=== PATIENT | female | born 1990 | race Caucasian/White ===

== ENCOUNTER 2018-08-06 17:47 | Emergency (ER) | payer BC ==
[2018-08-06 18:27] LABS: #Basophils 0.1 thou/uL (0.0-0.2); #Eosinphils 0.3 thou/uL (0.0-0.7); #Lymphocytes 2.3 thou/uL (1.20-3.40); #Monocytes 0.4 thou/uL (0.11-0.59); #Neutrophils 3.8 thou/uL (1.40-6.50); %Basophils 0.8 % (0.0-1.0); %Eosinophils 4.4 % (0.0-10.0); %Lymphocytes 33.5 % (21.0-51.0); %Monocytes 5.8 % (0.0-10.0); %Neutrophils 55.5 % (42.0-75.0); Hemoglobin 11.5 g/dL (12.0-16.0); Mean Corpuscular HGB CONC 33.3 g/dL (32.0-36.0); Mean Corpuscular Hemoglobin 28.6 pg (27.0-31.0); Mean Corpuscular Volume 85.9 fL (78.0-98.0); Mean Platelet Volume 8.5 fL (7.4-10.4); Platelet Count 242 thou/uL (130-400); RBC Distribution Width 13.7 % (11.5-14.5); Red Blood Cell (RBC) Count 4.04 mill/uL (4.20-5.40); White Blood Cell (WBC) Count 6.8 thou/uL (4.8-10.8)
[2018-08-06 18:41] LABS: Bilirubin Negative (Negative); Blood, Urine Large (Negative); Clarity CLEAR (Clear); Glucose, Urine (Dipstick) Negative (Negative); Leukocyte Small (Negative); Nitrite Negative (Negative); Protein, Urine (Dipstick) Negative (Neg-Trace); Specific Gravity, Urine 1.017 (1.002-1.036); Urobilinogen 0.2 mg/dL (0.2-1.0); pH, Urine 5.5 (5.0-9.0)
[2018-08-06 18:42] LABS: Bacteria/HPF None Seen HPF (None Seen); Hyaline Casts/LPF 0-3 HYALINE CAST LPF (0-3 Hyaline); Pathc Cast-AUWi Flag 0.27 (0-2.49); RBC/HPF GREATER THAN 50-TNTC HPF (0-3); Squamous Epithelial 0-3 HPF (0-3)
== END 2018-08-06 20:04 | disposition home or self-care (01) ==
LOC: ERS 17:47
DX: N93.9 Abnormal uterine and vaginal bleeding, unspecified (principal); F41.9 Anxiety disorder, unspecified; Z79.899 Other long term (current) drug therapy
CPT/HCPCS: 36415; 81003; 81015; 84702; 85025; 86850; 86900; 86901; 99284

== ENCOUNTER 2018-08-08 07:59 | Day surgery (SDC) | payer BC ==
--- NOTE | 2018-08-07 14:14 | HP ---
REASON FOR ADMISSION: Eight weeks missed AB. Scheduled procedure suction D and C by Dr. Alise Muse. HISTORY OF PRESENT ILLNESS: Ms. Babb is a 27-year-old 8, para 4, AB4, who came to see me early in , was found to have a blighted ovum. She was administered p.o. Cytotec, which she did not tolerate well and has had continued bleeding since without passage of tissue. She was seen in the emergency room 2 days ago, noted to have a hematocrit of 34%. Ultrasound today in the office reveals a thickened endometrium inhomogeneous with a maximum thickness of 2 cm. After discussing with the patient options, she desires to proceed with suction D and C. AEMT HISTORY: As noted. PAST MEDICAL HISTORY: None. PAST SURGICAL HISTORY: Reduction mammoplasty. ALLERGIES: CEFPROZIL. MEDICATIONS: vitamins, Bonjesta, Zofran, and tramadol. SOCIAL HISTORY: Denies tobacco, alcohol, or IV drug abuse. FAMILY HISTORY: Noncontributory. REVIEW OF SYSTEMS: Noncontributory. PHYSICAL EXAMINATION: VITAL SIGNS: White female in no acute distress, 5 feet 5 inches, weight 143, BMI 23.8, blood pressure 114/62, pulse 69, respirations 18. HEENT: Within normal limits. LUNGS: Clear to auscultation bilaterally. HEART: Regular rhythm. ABDOMEN: Soft, nontender. No rebound or guarding. : Vulva without lesions. Vagina without discharge. Cervix parous, small amount of bleeding. No dilatation or products of conception noted. Uterus is anteverted, 6- to 8-week size, slightly boggy, slightly tender. No adnexal masses. EXTREMITIES: Without clubbing, cyanosis, or edema. LABORATORY DATA: The patient's hematocrit is 34%. Blood type is A positive, antibody negative. IMPRESSION: Missed at 6 to 8 weeks gestation, nonresponsive to medical therapy. PLAN: Suction sharp D and C by Dr. Alise Muse today as I am out of town, and the patient was not available to have it performed on the afternoon of 08/07. The patient understands risks and benefits of the procedure. We will administer Zithromax 250 preoperatively for antibiotic prophylaxis. Job ID: [id number]
[2018-08-08] MEDS ORDERED: Azithromycin 250 MG in Sodium Chloride 0.9% 250 ML 250 ML IVPB SCH (09:00)
[2018-08-08] MEDS ORDERED: Ondansetron PF 4 MG/2 ML Vial ONE (10:23)
[2018-08-08] MEDS ORDERED: Lidocaine 1% PF 5 ML VIAL ONE (10:23)
[2018-08-08] MEDS ORDERED: Dexamethasone 20 MG/5 ML VIAL ONE (10:23)
[2018-08-08] MEDS ORDERED: Ketorolac Tromethamine 30 MG/ML VIAL ONE (10:23)
[2018-08-08] MEDS ORDERED: PROPOFOL 200 MG/20 ML VIAL ONE (10:23)
[2018-08-08] MEDS ORDERED: Fentanyl 100 MCG/2 ML VIAL ONE ×2 (10:27)
[2018-08-08] MEDS ORDERED: Midazolam HCl 2 mg/2 ml Vial ONE (10:38)
[2018-08-08] MEDS ORDERED: Meperidine HCl/PF 25 MG/ML VIAL ONE (11:41)
[2018-08-08] MEDS ORDERED: diphenhydrAMINE 50 MG/ML VIAL ONE (11:48)
[2018-08-08] MEDS ORDERED: Ibuprofen 800 MG TAB PO SCH (12:00)
--- NOTE | 2018-08-08 18:15 | OP ---
DATE OF PROCEDURE: 08/08/2018 PREOPERATIVE DIAGNOSIS: Eight week missed . POSTOPERATIVE DIAGNOSIS: Eight week missed . PROCEDURES PERFORMED: Suction dilation and curettage. CHEMICAL LABORATORY CHIEF: Jase Christian MD ANESTHESIA: General. COMPLICATIONS: None. ESTIMATED BLOOD LOSS: 20 mL. INDICATIONS: A 27-year-old 8, para 4, AB 4. She was seen by Dr. Babb and found to have a blighted ovum. She was administered p.o. Cytotec, which was not tolerated well with continued bleeding. After discussing options in the office , she desired to proceed with D and C and was scheduled today. DESCRIPTION OF PROCEDURE: The patient was taken into the operating room, where general anesthesia was obtained without difficulty. She was prepared and draped in normal sterile fashion in the dorsal lithotomy position with high leg holders. Her bladder was drained with in and out catheterization approximately 130 mL of clear urine. A speculum was placed in the vagina and the anterior lip of the cervix was grasped with a single-tooth tenaculum. The uterus was sounded to approximately 10 cm and serially dilated. A 10 mm suction curette was advanced to the fundus and rotated gently to evacuate the contents of the uterus. A gentle sharp curettage was performed until a gritty texture was noted throughout, followed by one more pass with the suction curette. Good hemostasis was noted. The tenaculum was removed with no bleeding. The speculum was removed from the vagina. The patient tolerated the procedure well. Sponge and instrument counts were correct x2. The patient was taken to the recovery room in stable condition. Products of conception were sent to Pathology. Job ID: [id number] [facility]
== END 2018-08-08 13:30 | disposition home or self-care (01) ==
LOC: SDC 07:59
PROVIDERS: ATTEND Obstetrics & Gynecology
PROC: 10D17ZZ Extraction of Products of Conception, Retained, Via Natural or Artificial Opening (ICD-10-PCS; principal; 2018-08-08)
DX: O02.0 Blighted ovum and nonhydatidiform mole (principal); O08.1 Delayed or excessive hemorrhage following ectopic and molar pregnancy; Z88.1 Allergy status to other antibiotic agents; Z79.899 Other long term (current) drug therapy
CPT/HCPCS: 88305; J0456; J1100; J1200; J1885; J2001; J2175; J2250; J2405; J2704; J3010; J7050

== ENCOUNTER 2018-10-24 12:10 | Outpatient (CLI) | payer BC ==
[2018-10-24 13:03] LABS: Hemoglobin 12.2 g/dL (12.0-16.0); Mean Corpuscular HGB CONC 32.8 g/dL (32.0-36.0); Mean Corpuscular Hemoglobin 27.3 pg (27.0-31.0); Mean Platelet Volume 8.4 fL (7.4-10.4); Platelet Count 209 thou/uL (130-400); RBC Distribution Width 13.5 % (11.5-14.5); Red Blood Cell (RBC) Count 4.47 mill/uL (4.20-5.40); White Blood Cell (WBC) Count 5.1 thou/uL (4.8-10.8)
[2018-10-24 13:53] LABS: BHCG - Serum Indeterminate (NEGATIVE); Pregs Control Background? CLEAR/WHITE (CLR/WHITE); Pregs Control Bar Appear? YES (CONTROL BAR)
== END 2018-10-24 12:11 | disposition home or self-care (01) ==
LOC: LABBT 12:10
PROVIDERS: ATTEND Obstetrics & Gynecology
DX: Z01.812 Encounter for preprocedural laboratory examination (principal); N81.4 Uterovaginal prolapse, unspecified; N80.0 Endometriosis of uterus
CPT/HCPCS: 84702; 84703; 85027; 86850; 86900; 86901

== ENCOUNTER 2019-05-29 14:30 | Day surgery (SDC) | payer BC ==
[2019-05-29] MEDS ORDERED: hydrALAZINE 20 MG/ML VIAL SLOW IVP PRN (14:44)
[2019-05-29 14:51] VITALS: BMI 28.9
[2019-05-29] MEDS ORDERED: Lactated Ringer's 1,000 ML IV SCH (15:00)
--- NOTE | 2019-05-29 15:14 | RAD ---
XR Chest 1 View Portable HISTORY: Shortness of breath COMPARISON: None FINDINGS: The heart size is normal. The lungs are well expanded without focal areas of consolidation, pneumothorax or pleural effusions. IMPRESSION: No radiographic evidence of acute cardiopulmonary process.
[2019-05-29 15:24] LABS: #Basophils 0.1 thou/uL (0.0-0.2); #Eosinphils 0.4 thou/uL (0.0-0.7); #Lymphocytes 1.6 thou/uL (1.20-3.40); #Monocytes 0.6 thou/uL (0.11-0.59); #Neutrophils 6.4 thou/uL (1.40-6.50); %Basophils 0.8 % (0.0-1.0); %Eosinophils 4.6 % (0.0-10.0); %Lymphocytes 17.6 % (21.0-51.0); %Monocytes 6.5 % (0.0-10.0); %Neutrophils 70.5 % (42.0-75.0); Hemoglobin 11.8 g/dL (12.0-16.0); Mean Corpuscular HGB CONC 34.4 g/dL (32.0-36.0); Mean Corpuscular Hemoglobin 32.2 pg (27.0-31.0); Mean Corpuscular Volume 93.5 fL (78.0-98.0); Mean Platelet Volume 9.5 fL (7.4-10.4); Platelet Count 139 thou/uL (130-400); RBC Distribution Width 12.4 % (11.5-14.5); Red Blood Cell (RBC) Count 3.68 mill/uL (4.20-5.40); White Blood Cell (WBC) Count 9.1 thou/uL (4.8-10.8)
--- NOTE | 2019-05-29 15:44 | HP ---
TIME: Roughly 1510 hours. TIME OF FIRST EVALUATION: 1500 hours. LOCATION: Triage bed A. HISTORY OF PRESENT ILLNESS: This is a 28-year-old female, who is 8, para 4, who sees Dr. Babb for care. The patient's EGA is 34 weeks and 2 days, and she arrived here with some complaint of chest discomfort upon lying down and some decreased movement. She states that she just "doesn't feel well." She does not have a cough and she says that she had a child at home with a cough and likely viral syndrome. She denies any other sick contacts and she denies vaginal bleeding, leakage of fluid, or regular contractions, although she does have some menstrual type cramping. REVIEW OF SYSTEMS: Complete review of systems was checked and is otherwise negative unless specified in the HPI. PAST MEDICAL HISTORY: Otherwise negative. PAST SURGICAL HISTORY: Significant for breast reduction and left knee surgery. ALLERGIES: CIPRO. OB HISTORY: She has had 3 spontaneous miscarriages and she has had 4 term vaginal deliveries. SOCIAL HISTORY: Negative for alcohol, tobacco, or drug use. PHYSICAL EXAMINATION: VITAL SIGNS: Her temperature is 98.6, her O2 saturation is 96% to 97% on room air, blood pressure is 121/69, and heart rate is 73. GENERAL: She is in no acute distress. : Uterus is soft and nontender. Cervix exam is pending as I have requested the nurse to please check her as I tend to other patient matters. The external monitor shows no evidence of contractions and the heart tones are reactive for gestational age. I see the heart rate at 140 to 150 with moderate variability and there are accelerations. Interventions ordered. I have ordered a CBC, CMP, 1 L of LR, and a chest x-ray. ASSESSMENT: This is a multigravida patient who is at 34 weeks and 2 days with nonspecific "chest discomfort" upon lying down. My index of suspicion for pulmonary embolism is low at this time as I do not suspect that is clinically occurring. Nonetheless, we will watch her for now. PLAN: I will order a chest x-ray. She is in no acute respiratory distress, with nonlabored breathing, I do not feel that a CT angio is required at this time. However, if she does not improve after IV fluid and if she is still concerned, I may order that prior to her release. For now, I have been called down to the emergency room for another assessment and we will continue to keep her on the monitor here until the chest x-ray and labs return. Job ID: [id number] [facility]TDD
[2019-05-29 15:49] LABS: ALT (SGPT) 8 U/L (8-55); AST (SGOT) 13 U/L (5-34); Albumin 3.7 g/dL (3.5-5.0); Alkaline Phosphatase 103 U/L (40-110); Anion Gap 12 mmol/L (10-20); BUN (Urea Nitrogen) 8 mg/dL (7.0-18.7); Bilirubin, Total 0.2 mg/dL (0.2-1.2); Calc. Creatinine Clearance 167 mL/min (70-130); Calcium 8.8 mg/dL (7.8-10.44); Carbon Dioxide 23 mmol/L (22-29); Chloride 106 mmol/L (98-107); Estimated GFR-MDRD Greater than 90; Globulin 2.4 g/dL (2.4-3.5); Glucose 76 mg/dL (70-105); Potassium 4.7 mmol/L (3.5-5.1); Protein, Total 6.1 g/dL (6.0-8.3); Sodium 136 mmol/L (136-145)
--- NOTE | 2019-05-29 16:18 | PDOC.EVN ---
Event Note - Event Note Event Note: Folloe up: CBC and CMP are both normal CXR is normal Feels better after IVF OK for outpatient care
== END 2019-05-29 16:24 | disposition home or self-care (01) ==
LOC: L&D/OP 14:30
PROVIDERS: ATTEND Obstetrics & Gynecology
DX: O36.8130 Decreased fetal movements, third trimester, not applicable or unspecified (principal); O99.89 Other specified diseases and conditions complicating pregnancy, childbirth and the puerperium; R07.89 Other chest pain; O09.293 Supervision of pregnancy with other poor reproductive or obstetric history, third trimester; Z3A.34 34 weeks gestation of pregnancy
CPT/HCPCS: 36415; 71045; 80053; 85025; 96360; 96361; 99283

== ENCOUNTER 2019-06-29 02:23 | Day surgery (SDC) | payer BC ==
[2019-06-29] MEDS ORDERED: hydrALAZINE 20 MG/ML VIAL SLOW IVP PRN (02:59)
--- NOTE | 2019-06-29 03:02 | PDOC.LDHP ---
Labor and Delivery H&P HPI: Patient of Dr tran Time: 0300 28 yo at 38 weeks 5 days with C/O possible CTX every 10 min or so. No LOF, no VB. Good FM. No coufgh or fever SXS. Review of Systems: complete ROS completed and as per HPI Current gestational age (weeks): 38 (5 days) Due date: 07/08/19 Grav: 8 Para: 4 OB History Details: All hx Current complications: none Abnormal US findings: No Past Medical History: HX anxiety and Depression, on Zoloft Current medications: pre- vitamins, other (Zoloft) Previous surgical history: other (Breast Reduction) Allergies/Adverse Reactions: Allergies Allergy/AdvReac Type Severity Reaction Status Date / Time ciprofloxacin [From Cipro] Allergy Hives Verified 05/29/19 14:41 Social history: none - Physical Exam Vital signs reviewed and normal: yes ([id number]) General: NAD Abdomen: gravid Extremeties: no edema FHT: category 1 Bylas contractions every: rare ctx - Vaginal Exam cm dilated: 3 Effacement: 50% Station: -2 - Assessment Latent labor at early term; - Plan Plan: observation in L&D (NO evidence active labor but will OBS for 2 hrs and recheck then to be comservative)
--- NOTE | 2019-06-29 05:05 | PDOC.EVN ---
Event Note - Event Note Event Note: Recheck reviewed the same exam, but patient ststes increase in CTX pain. I will continue OBS here and reecheck in 2 hrs.
[2019-06-29] MEDS ORDERED: Butorphanol Tartrate 1 MG/ML VIAL SLOW IVP PRN (05:06)
[2019-06-29] MEDS ORDERED: Promethazine HCl 25 MG/ML VIAL IM/IV PRN (05:07)
--- NOTE | 2019-06-29 07:14 | PDOC.EVN ---
Event Note - Event Note Event Note: 4 hr recheck done by me: still /-3 and posterior by my exam. I reviewed latent phase of labor and 39 week guideline. As no change in 4 hrs, ok for home as clinically well and not laboring. I recommended she get rechecked ths PM in office if able. Has IOL saturday
== END 2019-06-29 07:30 | disposition home or self-care (01) ==
LOC: L&D/OP 02:23
PROVIDERS: ATTEND Obstetrics & Gynecology
DX: O47.1 False labor at or after 37 completed weeks of gestation (principal); O99.343 Other mental disorders complicating pregnancy, third trimester; F41.9 Anxiety disorder, unspecified; F32.9 Major depressive disorder, single episode, unspecified; Z3A.38 38 weeks gestation of pregnancy; Z79.899 Other long term (current) drug therapy; Z88.1 Allergy status to other antibiotic agents
CPT/HCPCS: 99282

== ENCOUNTER 2019-07-01 05:30 | Inpatient (IN) | payer BC ==
[2019-07-01] MEDS ORDERED: hydrALAZINE 20 MG/ML VIAL SLOW IVP PRN ×2 (06:39→16:52)
[2019-07-01] MEDS ORDERED: HYDROcodone/Acetaminophen 5/325 mg Tablet PO PRN ×2 (06:39)
[2019-07-01] MEDS ORDERED: Ondansetron PF 4 MG/2 ML Vial IVP PRN ×3 (06:39→16:52)
[2019-07-01] MEDS ORDERED: Promethazine HCl 25 MG/ML VIAL IM PRN ×3 (06:39→16:52)
[2019-07-01] MEDS ORDERED: NS w/ Oxytocin 10 units 500 ML IV SCH (06:39)
[2019-07-01] MEDS ORDERED: Ibuprofen 800 MG TAB PO PRN (06:39)
[2019-07-01] MEDS ORDERED: Lactated Ringer's 1,000 ML IV SCH (06:39)
[2019-07-01] MEDS ORDERED: Butorphanol Tartrate 1 MG/ML VIAL SLOW IVP PRN (06:39)
[2019-07-01] MEDS ORDERED: Lidocaine 1% (PF) 30 ML VIAL SC PRN (06:39)
[2019-07-01 06:53] LABS: Hemoglobin 12.2 g/dL (12.0-16.0); Mean Corpuscular HGB CONC 34.8 g/dL (32.0-36.0); Mean Corpuscular Hemoglobin 31.8 pg (27.0-31.0); Mean Corpuscular Volume 91.3 fL (78.0-98.0); Mean Platelet Volume 10.2 fL (7.4-10.4); Platelet Count 157 thou/uL (130-400); RBC Distribution Width 12.6 % (11.5-14.5); Red Blood Cell (RBC) Count 3.83 mill/uL (4.20-5.40); White Blood Cell (WBC) Count 7.8 thou/uL (4.8-10.8)
[2019-07-01 07:00] VITALS: BMI 29.7
[2019-07-01] MEDS: Lactated Ringer's 1,000 ML IV SCH ×4 (07:02→16:20)
[2019-07-01 07:34] LABS: Syphilis Antibody Nonreactive (Nonreactive); Syphilis Antibody Index 0.04 S/CO (<1.00 Non-Reactive)
[2019-07-01 07:35] LABS: HBSAg Index 0.31 S/CO (0-0.99); Hep B Surf Ag Non-Reactive S/CO (NonReactive)
[2019-07-01] MEDS ORDERED: Fentanyl 4 mcg/Bup 0.1% Cadd 100 ML ONE (09:02)
[2019-07-01] MEDS ORDERED: Bupivacaine 0.25% HCL 30 ML VIAL ONE (10:33)
[2019-07-01] MEDS ORDERED: Naloxone HCl 0.4 mg/ml Vial IVP PRN ×2 (11:01)
[2019-07-01] MEDS ORDERED: Lactated Ringer's 500 ML IV PRN (11:01)
[2019-07-01] MEDS ORDERED: EPHEDRINE 25 MG/5 ML SYRINGE SLOW IVP PRN (11:01)
[2019-07-01] MEDS ORDERED: diphenhydrAMINE 50 MG/ML VIAL IVP PRN (11:01)
[2019-07-01] MEDS ORDERED: Acetaminophen 325 MG TAB PO PRN (11:01)
[2019-07-01] MEDS ORDERED: Fentanyl 4 mcg/Bupivacaine 0.1% Cassette 100 ML EPIDURAL SCH (11:15)
[2019-07-01] MEDS ORDERED: Communication Order-Pharmacy FS SCH (11:15)
[2019-07-01] MEDS ORDERED: Misoprostol 200 MCG TAB ONE (12:47)
[2019-07-01] MEDS: NS / Oxytocin 40 units/1000ml 1,000 ML IV PRN ×2 (12:58→15:01)
[2019-07-01] MEDS ORDERED: Milk Of Magnesia 30 ML UDCUP PO PRN (16:52)
[2019-07-01] MEDS ORDERED: Preparation H Ointment 28 GM TUBE PR PRN (16:52)
[2019-07-01] MEDS ORDERED: Lanolin Ointment 7 GM TUBE TOP PRN (16:52)
[2019-07-01] MEDS ORDERED: Bisacodyl 10 MG SUPP PR PRN (16:52)
[2019-07-01] MEDS ORDERED: NS / Oxytocin 40 units/1000ml 1,000 ML IV SCH (16:52)
[2019-07-01] MEDS ORDERED: Zolpidem Tartrate 5 MG TAB PO PRN (16:52)
[2019-07-01] MEDS ORDERED: Benzocaine-Menthol 82.5 ML CAN TOP PRN (16:52)
[2019-07-01] MEDS ORDERED: Adacel (T-DAP) 0.5 ML SYRINGE IM ONE (16:52)
[2019-07-01] MEDS ORDERED: diphenhydrAMINE 25 MG CAP PO PRN (16:52)
[2019-07-01] MEDS: HYDROcodone/Acetaminophen 5/325 mg Tablet PO PRN ×2 (17:18→21:44)
[2019-07-01] MEDS: Ferrous Sulfate 325 MG TAB PO SCH (20:27)
[2019-07-01] MEDS: Docusate Calcium (SURFAK) 240 MG CAP PO SCH (21:28)
[2019-07-01] MEDS: Ibuprofen 800 MG TAB PO SCH ×2 (21:29→22:27)
[2019-07-02] MEDS ORDERED: HYDROcodone/Acetaminophen 5/325 mg Tablet PO SCH (01:15)
[2019-07-02] MEDS: HYDROcodone/Acetaminophen 5/325 mg Tablet PO PRN ×3 (05:56→16:03)
[2019-07-02] MEDS: Ibuprofen 800 MG TAB PO SCH ×2 (05:56→14:13)
[2019-07-02 06:53] LABS: Hemoglobin 8.7 g/dL (12.0-16.0); Mean Corpuscular HGB CONC 34.4 g/dL (32.0-36.0); Mean Corpuscular Hemoglobin 32.2 pg (27.0-31.0); Mean Corpuscular Volume 93.6 fL (78.0-98.0); Mean Platelet Volume 9.7 fL (7.4-10.4); Platelet Count 125 thou/uL (130-400); RBC Distribution Width 12.6 % (11.5-14.5); White Blood Cell (WBC) Count 9.4 thou/uL (4.8-10.8)
--- NOTE | 2019-07-02 08:07 | PRG ---
DATE OF SERVICE: 07/01/2019 CHIEF COMPLAINT: Syncope and deviated uterus. HISTORY OF PRESENT ILLNESS: The patient is a 28-year-old female, who had an uncomplicated term spontaneous vaginal delivery just hours before being called to the room after the patient experienced syncope in the bathroom, witnessed by her nurse. The patient was taken back to the bed and was kept safe. However, on evaluation, the patient was noted to have a very high and deviated uterus. The patient was unable to void and a Shelley catheter was placed back into the bladder. On my arrival, the patient was alert and oriented. She was shaking and reportedly scared. She is having pain in her left lower pelvis. On evaluation, the patient was noted to have a fundus that was +2 cm and deviated to the right. She did have urine coming from the Shelley catheter into the bag. With permission, a bimanual exam was performed and the patient was noted to have a significant amount of clot left in the uterus. About 150 mL of that clot was manually removed. The uterus was firm and was not actively bleeding. Attempts to remove any more clot was abandoned due to the patient's tolerance. The uterus remained firm and again there was no active bleeding. The patient's vital signs at that time were stable with blood pressures in the 100 over 50s, pulse in the 80s to 90s. She was given reassurance and re-evaluation about an hour to later, the uterus was noted to be still even with the umbilicus or it had returned after evacuation of the uterus, still deviated to the right, but firm and no persistent bleeding. The patient still reported having pain on the left side, but in our conversation before that she has been having pain there for several months due to the . The patient was sent to the floor for further recovery later on that afternoon. In the middle of night, I was called back to the room by the night nurse, again concerned about the pain that she is experiencing on the left side. The patient and nurse report that the bleeding has been minimal and the patient reports that her pain is still in the left lower corner and also in her abdomen, making it sometimes difficult for her to breathe. On evaluation, uterus again was at the umbilicus, if not 1 below, fairly firm and the bleeding again was reported as minimal. The patient was otherwise stable with normal vital signs and interacting in normal appropriate way. All this occurring in the context of a patient who self reports this being an excessive worrier. A CBC was drawn this morning for evaluation and this morning I passed by the room just to check on Ms. Babb. She reports the pain medicine has been helping with the pain that she continues to have reduced bleeding and is otherwise doing better. Lab counts this morning showed a hemoglobin of 8.7, hematocrit 25.3, platelets of a 125,000, down from 12.2, and a platelet count of a 157,000. This in the setting of a patient who had about 260 mL of quantitative blood loss and I believe another 300 mL in recovery before being transferred over to the floor, given a total of 600 to 700 mL. Vital signs this morning; blood pressure 111/61, temperature 97.9, pulse of 75, respiratory rate of 16, saturating 97% on room air, and she appeared this morning in no acute distress. Alert and oriented. Cooperative and pleasant to interact with. Attending to her baby. Reassurance was given to the patient and reports of my initial assessment were reported off to Dr. Babb's yesterday who will be assuming care once again this morning. Job ID: [id number]
[2019-07-02] MEDS ORDERED: Prenatal Vitamin 1 TAB PO SCH (09:00)
[2019-07-02] MEDS: Ferrous Sulfate 325 MG TAB PO SCH ×2 (09:14→18:37)
[2019-07-02] MEDS: Docusate Calcium (SURFAK) 240 MG CAP PO SCH (09:14)
[2019-07-02 16:16] VITALS: BP 110/63; TEMP 98.8
== END 2019-07-02 19:02 | disposition home or self-care (01) | DRG 806 ==
LOC: L&D 06:11 → 3SE 20:00
PROVIDERS: ADMIT Obstetrics & Gynecology; ATTEND Obstetrics & Gynecology
PROC: 10E0XZZ Delivery of Products of Conception, External Approach (ICD-10-PCS; principal; 2019-07-01)
PROC: 10907ZC Drainage of Amniotic Fluid, Therapeutic from Products of Conception, Via Natural or Artificial Opening (ICD-10-PCS; 2019-07-01)
PROC: 3E0P7VZ Introduction of Hormone into Female Reproductive, Via Natural or Artificial Opening (ICD-10-PCS; 2019-07-01)
PROC: 3E033VJ Introduction of Other Hormone into Peripheral Vein, Percutaneous Approach (ICD-10-PCS; 2019-07-01)
PROC: 0HQ9XZZ Repair Perineum Skin, External Approach (ICD-10-PCS; 2019-07-01)
PROC: 0UC97ZZ Extirpation of Matter from Uterus, Via Natural or Artificial Opening (ICD-10-PCS; 2019-07-01)
DX: O69.81X0 Labor and delivery complicated by cord around neck, without compression, not applicable or unspecified (principal); O72.2 Delayed and secondary postpartum hemorrhage; Z37.0 Single live birth; O77.0 Labor and delivery complicated by meconium in amniotic fluid; O70.0 First degree perineal laceration during delivery; Z3A.39 39 weeks gestation of pregnancy
CPT/HCPCS: 36415; 51702; 85027; 86780; 86850; 86900; 86901; 87340; 99282; J2405; J2590; S0020

== ENCOUNTER 2020-02-16 05:55 | Observation (INO) | payer BC, OTHER ==
[2018-10-24 12:24] VITALS: BMI 23.8
[2020-02-11 08:09] LABS: Hemoglobin 12.5 g/dL (12.0-16.0); Mean Corpuscular HGB CONC 31.5 G/DL (32.0-36.0); Mean Corpuscular Volume 88.8 fl (80.0-100.0); Mean Platelet Volume 10.7 fl (7.4-10.4); Platelet Count 287 10x3/uL (130-400); Red Blood Cell (RBC) Count 4.47 10x6/uL (3.90-5.20); White Blood Cell (WBC) Count 3.9 10x3/uL (4.5-11.0)
[2020-02-11 08:15] LABS: BHCG - Serum Negative (NEGATIVE); Pregs Control Background? CLEAR/WHITE (CLR/WHITE); Pregs Control Bar Appear? YES (CONTROL BAR)
[2020-02-11 17:38] LABS: SARS-CoV-2 MS2 Positive; SARS-CoV-2 N Gene Negative; SARS-CoV-2 S Gene Negative; SARS-CoV-2 by NAA Not Detected (NotDetected); SARS-CoV-2 orf1ab Negative
--- NOTE | 2020-02-16 05:37 | HP ---
REASON FOR ADMISSION: Symptomatic uterine prolapse with pelvic pain and dyspareunia. SCHEDULED PROCEDURE: Total laparoscopic hysterectomy, bilateral salpingectomy, uterosacral ligament vault suspension. HISTORY OF PRESENT ILLNESS: Ms. Babb is a 29-year-old, well known to me. She was previously scheduled for this surgery in 2019. however, she became , which was documented at her preoperative visit. She is now approximately 6 months and desires definitive surgical management. 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 PAST MEDICAL HISTORY: Mild ulcerative colitis. PAST SURGICAL HISTORY: Reduction mammoplasty. SOCIAL HISTORY: Denies tobacco, alcohol, or drug abuse. MEDICATIONS: 1. Afluria. 2. Alprazolam. 3. OCPs. ALLERGIES: CEFPROZIL AND CIPROFLOXACIN. FAMILY HISTORY: Noncontributory. REVIEW OF SYSTEMS: Noncontributory. PHYSICAL EXAMINATION: GENERAL: White female. VITAL SIGNS: 5 feet 5 inches, 160, BMI 27. Blood pressure 108/60, pulse 68, respirations 18. HEENT: Within normal limits. LUNGS: Clear to auscultation bilaterally. HEART: Regular rate and rhythm. ABDOMEN: Soft, nontender. No rebound or guarding. Vulva without lesions. Vagina without discharge. Cervix, parous uterus, introitus -2. No leakage with cough or Valsalva. Bimanual reveals 4 to 6 weeks' size uterus and no adnexal masses bilaterally. EXTREMITIES: No clubbing, cyanosis, or edema. IMPRESSION: Symptomatic uterine prolapse, desiring surgical management. PLAN: Total laparoscopic hysterectomy, bilateral salpingectomy, uterosacral ligament vault suspension. We will administer appropriate antibiotic prophylaxis with cephalosporin allergy with clindamycin and vancomycin. The patient understands risks and benefits of procedure. We will administer appropriate DVT prophylaxis. Job ID: [id number]
[2020-02-16] MEDS ORDERED: Fentanyl 100 MCG/2 ML VIAL ONE ×3 (06:47→15:29)
[2020-02-16] MEDS ORDERED: SUGAMMADEX SODIUM 200 MG/2 ML VIAL ONE (06:47)
[2020-02-16] MEDS ORDERED: Midazolam HCl 2 mg/2 ml Vial ONE ×2 (06:47→07:22)
[2020-02-16] MEDS ORDERED: Lidocaine 1% w/Epinephrine 1:100K 20 ML VIAL ONE (06:54)
[2020-02-16] MEDS ORDERED: Bupivacaine PF 0.5% 30 ML VIAL ONE (06:54)
[2020-02-16] MEDS ORDERED: Famotidine/PF 20 mg/2ml Vial ONE (06:56)
[2020-02-16] MEDS ORDERED: Heparin 5,000 UNITS/ML VIAL ONE (06:56)
[2020-02-16] MEDS ORDERED: HYDROmorphone 0.5 MG/0.5 ML SYRINGE ONE (07:13)
[2020-02-16] MEDS ORDERED: EPINEPHrine 1 MG/ML AMP ONE (08:24)
[2020-02-16] MEDS ORDERED: Bupivacaine 0.25% HCL 30 ML VIAL ONE ×2 (08:24→08:50)
[2020-02-16] MEDS ORDERED: Gentamicin 80 MG/2 ML VIAL ONE (08:24)
[2020-02-16] MEDS ORDERED: Lidocaine 1% (PF) 30 ML VIAL ONE (08:24)
[2020-02-16] MEDS ORDERED: Ondansetron PF 4 MG/2 ML Vial ONE (08:58)
[2020-02-16] MEDS ORDERED: PROPOFOL 200 MG/20 ML VIAL ONE (08:58)
[2020-02-16] MEDS ORDERED: Lidocaine 1% PF 5 ML VIAL ONE (08:58)
[2020-02-16] MEDS ORDERED: Dexamethasone 20 MG/5 ML VIAL ONE (08:58)
[2020-02-16] MEDS ORDERED: Vecuronium 10 MG VIAL ONE (08:58)
[2020-02-16] MEDS ORDERED: Glycopyrrolate 0.2 MG/ML 5 ML SYRINGE ONE (08:58)
[2020-02-16] MEDS ORDERED: Rocuronium Bromide 10 MG/ML (10ML VIAL) ONE (08:58)
[2020-02-16] MEDS ORDERED: ePHEDrine 50 MG/ML VIAL ONE (08:58)
[2020-02-16] MEDS ORDERED: PHENYLEPHRINE-NS 100 MCG/ML 10 ML SYRINGE ONE (08:58)
[2020-02-16] MEDS ORDERED: Ondansetron PF 4 MG/2 ML Vial IVP PRN (09:22)
[2020-02-16] MEDS ORDERED: Promethazine HCl 25 MG/ML VIAL IM PRN (09:22)
[2020-02-16] MEDS ORDERED: Morphine 4 MG/ML VIAL SLOW IVP PRN (09:22)
[2020-02-16] MEDS ORDERED: Morphine 2 MG/ML VIAL SLOW IVP PRN (09:22)
[2020-02-16] MEDS ORDERED: Zolpidem Tartrate 5 MG TAB PO PRN (09:22)
[2020-02-16] MEDS ORDERED: Simethicone Chewable 80 MG TAB PO PRN (09:22)
[2020-02-16] MEDS ORDERED: Tranexamic Acid 1,000 MG/10 ML VIAL ONE (10:47)
--- NOTE | 2020-02-16 12:29 | OP ---
DATE OF PROCEDURE: 02/16/2020 TIME OF SERVICE: 919. PREOPERATIVE DIAGNOSIS: Symptomatic uterine prolapse with dyspareunia. POSTOPERATIVE DIAGNOSIS: Symptomatic uterine prolapse with dyspareunia. PROCEDURES PERFORMED: Total laparoscopic hysterectomy, bilateral salpingectomy, uterosacral ligament vaginal vault suspension. HEATING MECHANIC: Jeniffer Trevizo MD ANESTHESIA: General endotracheal. ESTIMATED BLOOD LOSS: 50 cc. COMPLICATIONS: None. DRAINS: Shelley to gravity. OPERATIVE FINDINGS: 1. Approximately 6-week size uterus with a 4 cm diameter cervix prolapsed approximately 2 cm of the introitus. 2. Normal-appearing uterus, tubes, and ovaries laparoscopically. 3. Ureters identified well lateral to the surgical field. 4. Good vault suspension post hysterectomy. DISPOSITION: Continued procedure with abdominoplasty and liposuction with Dr. Hermosillo. DESCRIPTION OF PROCEDURE: After obtaining appropriate informed consent, the patient was taken to the operating room, where general endotracheal anesthesia was achieved without difficulty. She was prepped and draped in dorsal lithotomy in Jose Alberto stirrups. Sliding speculum was placed in the vagina. Cervix was identified, grasped with single-tooth tenaculum, sounded to 8 cm. MARÍA manipulator with vaginal lawn mower mechanic placed in the usual manner. Shelley catheter was placed and attached to 60 cc syringe. Precision Mechanical Instrument Maker changed his attention to abdominal portion of procedure. A vertical midline skin incision was made just above the umbilicus under the direction of Dr. Hermosillo for his abdominoplasty. placed aside. Insufflation carried out with carbon dioxide at maximum pressure of 15. A 12 mm noncutting Kayce trocar was placed without difficulty. Confirmation of entry into the peritoneal cavity was noted. Right and left lateral trocars were placed lateral to epigastric vessels and an appropriate place marked by Dr. Hermosillo. An 11 mm noncutting commercial lending assistant trocar was placed in the right upper quadrant for assistance, all under direct visualization. The patient was placed in steep Trendelenburg and docked with the da Humphrey robot, monopolar scissors in the right hand and bipolar fenestrated forceps in the left. The cul-de-sac was cleared and the ureters were noted cul-de-sac of Gonzalo as well as the uterosacral ligaments. Incision was made in the peritoneum just lateral to the uterosacral ligament to prevent kinking of the ureter with uterosacral ligament plication. This was carried up all the way to the level of the cervix. After this was done on the patient's left, the mesosalpinx was coagulated and transected, and the fallopian tube excised and sent for pathologic analysis. The utero-ovarian ligament was coagulated and transected, the broad, the round, and down to the level of the internal cervical os. Anteriorly, the vesicouterine peritoneal fold was incised sharply, dissecting the bladder off the cervix and upper vagina to identify its margins. Skeletonization of the uterine vessels carried out on the left and these were coagulated and transected. Attention was turned to the patient's right where identical procedure was carried out, excising the fallopian tube, coagulating and transecting the utero-ovarian, broad and round, isolating the uterine vessels, dissecting the bladder off the cervix and upper vagina. Once this was achieved, the vagina was entered anteriorly at 12 o'clock, extended from 12 to 3 and 12 to 9 and then from 3 to 6 and 9 to 6, amputating the specimen, was pulled in the vagina, maintained pneumoperitoneum. Suction irrigation carried out. Good hemostasis rendered along the cuff. The cuff was closed using a running continuous 2-0 PDS Stratafix, running from right to left and then back to right with my usual 2-layer closure technique. Good hemostasis was noted. The vaginal apex was elevated. 2-0 Ethibonds were brought into the abdominal cavity and the uterosacral ligaments plicated up to the apex of the vagina bilaterally, suspending the vaginal apex. Good hemostasis noted and no kinking of the ureter was noted. Suspension sutures were also noted to obliterate the cul-de-sac of Gonzalo well and so no Tierney's culdoplasty stitch was placed. Suction irrigation was carried out. Good hemostasis was noted throughout. Tisseel applied across all raw surfaces. The abdomen desufflated of carbon dioxide after undocking the da Humphrey and removing its instruments and removing the trocars. The fascia at the level of the infraumbilical trocar was reapproximated using 0 Vicryl on a UR5 needle. The skin was reapproximated at the location of the right upper quadrant noncutting trocar and the rest of the incisions were left open for Dr. Hermosillo to utilize with his procedure. Job ID: [id number]
[2020-02-16] MEDS ORDERED: Promethazine HCl 25 MG/ML VIAL ONE (13:16)
[2020-02-16] MEDS: Lactated Ringer's 1,000 ML IV SCH ×2 (16:21→18:08)
[2020-02-16] MEDS: Gabapentin 300 MG CAP PO SCH ×2 (16:21→21:36)
[2020-02-16] MEDS: HYDROcodone/Acetaminophen 10/325 mg Tablet PO PRN (23:51)
[2020-02-17] MEDS: HYDROcodone/Acetaminophen 10/325 mg Tablet PO PRN ×3 (03:22→10:01)
--- NOTE | 2020-02-17 06:50 | OP ---
DATE OF PROCEDURE: 02/16/2020 PREOPERATIVE DIAGNOSIS: Excess abdominal skin. POSTOPERATIVE DIAGNOSIS: Excess abdominal skin. PROCEDURES PERFORMED: 1. Abdominoplasty. 2. Liposuction of the hips. DESCRIPTION OF PROCEDURE: Following induction of adequate anesthesia, the patient was prepped and draped in usual sterile fashion in the supine position. The patient had previously undergone a hysterectomy by Dr. Babb. Please see his note for further details. After induction of adequate anesthesia, the umbilicus was circumcised. The low-transverse incision was then made with dissection being carried sharply down to the abdominal wall fascia with care to bevel superiorly after the lateral thirds. Dissection was then carried cephalad in the plane just above the abdominal wall fascia where it was made contiguous with the umbilical dissection. Dissection was then carried cephalad to the level of the xiphoid to expose the anterior abdominal wall, which was then plicated with interrupted running 2-0 PDS suture. TAP blocks were done under direct visualization. The patient was placed in the reflex position and excess skin marked and excised. The field was copiously irrigated and inspected for meticulous hemostasis prior to closure. The upper flap was quilted with combination of interrupted 2-0 PDS suture as well as 2-0 V-Loc suture. The low-transverse Cyndie fascia closure was similarly closed. Remainder of the skin closure was done with 3-0 PDS suture and 3-0 Monocryl suture. The umbilicus was brought up through a gullwing skin incision and inset was used in interrupted 3-0 PDS suture and running 3-0 Prolene suture. The drains were placed prior to closure. Attention was turned to liposuction. Each hip was infused with 250cc tumescent fluid. After this had adequate time to take effect, traditional MILTON was done to an endpoint of an aesthetically pleasing shape. The patient tolerated the procedure well. Job ID: [id number] [facility]
[2020-02-17] MEDS: Lactated Ringer's 1,000 ML IV SCH ×2 (07:34→10:42)
--- NOTE | 2020-02-17 07:44 | PRG ---
DATE OF SERVICE: SUBJECTIVE: Patient's pain is under better control this morning. She said she had a rough night. OBJECTIVE: Drains have thin serosanguineous. 40 mL of output was recorded overnight. Flaps are viable. Incisions are closed. ASSESSMENT: Status post abdominoplasty, hysterectomy. Patient is doing well. I discussed her postoperative management. She is going to call daily with drain output. We have an appointment for Saturday morning at 8 in the morning. She is also given wound care instructions and asked to ambulate and drink lots of water for DVT prevention. Job ID: [id number]
[2020-02-17 07:50] LABS: Hemoglobin 9.6 g/dL (12.0-16.0); Mean Corpuscular Hemoglobin 29.7 pg (27.0-31.0); Mean Corpuscular Volume 89.8 fL (78.0-98.0); Platelet Count 160 thou/uL (130-400); RBC Distribution Width 12.4 % (11.5-14.5); Red Blood Cell (RBC) Count 3.25 mill/uL (4.20-5.40); White Blood Cell (WBC) Count 6.2 thou/uL (4.8-10.8)
[2020-02-17] MEDS: Gabapentin 300 MG CAP PO SCH (08:06)
[2020-02-17 08:14] VITALS: BP 110/61; TEMP 97.3
--- NOTE | 2020-02-17 08:54 | DIS ---
DATE OF ADMISSION: 02/16/2020 DATE OF DISCHARGE: 02/17/2020 SUMMARY OF HOSPITAL COURSE: The patient underwent TLH, bilateral salpingectomy, vaginal vault-uterosacral ligament suspension, and abdominoplasty with liposuction by Dr. Babb and Dr. Hermosillo. My intraoperative blood loss was 50 mL, DrJerome Hermosillo's was not noted. The patient's hematocrit went from 39% to 29%, which is consistent with the patient's intraoperative blood loss as well as IV hydration. She has had minimal close suction drain output by Dr. Hermosillo's drains. She feels good this morning. Has an appetite and desires discharge home. PHYSICAL EXAMINATION: VITAL SIGNS: Temperature 97.3, pulse 69, respirations 20, and blood pressure 107/55. HEENT: Within normal limits. LUNGS: Clear to auscultation bilaterally. HEART: Regular rhythm. ABDOMEN: Her abdomen is in a binder and it is nondistended. : She has no vaginal bleeding. EXTREMITIES: Nontender. IMPRESSION: Doing well, status post hysterectomy, abdominoplasty, liposuction. PLAN: Discharge home. The patient already has her discharge pain medications and it is instructed from my standpoint to avoid penetrating vaginal intercourse for 6 weeks and follow up at [facility] in 6 weeks. Job ID: [id number]
[2020-02-17] MEDS ORDERED: Zinc Gluconate [Zinc] 30 MG Tablet PO SCH (09:00)
== END 2020-02-17 11:48 | disposition home or self-care (01) ==
LOC: SDC 05:55 → 3SE 09:22 → EDSTATUS 12:00
PROVIDERS: ADMIT Obstetrics & Gynecology; ATTEND Obstetrics & Gynecology
PROC: 0UT94ZZ Resection of Uterus, Percutaneous Endoscopic Approach (ICD-10-PCS; principal; 2020-02-16)
PROC: 0UT74ZZ Resection of Bilateral Fallopian Tubes, Percutaneous Endoscopic Approach (ICD-10-PCS; 2020-02-16)
PROC: 0USG7ZZ Reposition Vagina, Via Natural or Artificial Opening (ICD-10-PCS; 2020-02-16)
PROC: 0J0M3ZZ Alteration of Left Upper Leg Subcutaneous Tissue and Fascia, Percutaneous Approach (ICD-10-PCS; 2020-02-16)
PROC: 0J0L3ZZ Alteration of Right Upper Leg Subcutaneous Tissue and Fascia, Percutaneous Approach (ICD-10-PCS; 2020-02-16)
PROC: 0J080ZZ Alteration of Abdomen Subcutaneous Tissue and Fascia, Open Approach (ICD-10-PCS; 2020-02-16)
DX: N81.4 Uterovaginal prolapse, unspecified (principal); N80.0 Endometriosis of uterus; N72 Inflammatory disease of cervix uteri; N83.8 Other noninflammatory disorders of ovary, fallopian tube and broad ligament; Z41.1 Encounter for cosmetic surgery; K51.90 Ulcerative colitis, unspecified, without complications; Z79.899 Other long term (current) drug therapy; Z88.1 Allergy status to other antibiotic agents
CPT/HCPCS: 36415; 84703; 85027; 86850; 86900; 86901; 87635; 88307; 96374; G0378; J0171; J0690; J1100; J1170; J1580; J1644; J2001; J2250; J2270; J2405; J2550; J2704; J3010; J3370; J3490; S0020; S0028; U0003

== ENCOUNTER → 2020-02-17 | Emergency (ER) | payer BC, OTHER ==
[2020-02-17 20:51] LABS: ALT (SGPT) 9 U/L (8-55); AST (SGOT) 12 U/L (5-34); Albumin 3.4 g/dL (3.5-5.0); Alkaline Phosphatase 39 U/L (40-110); Anion Gap 11 mmol/L (10-20); BUN (Urea Nitrogen) 8 mg/dL (7.0-18.7); Bilirubin, Total Less than 0.2 mg/dL (0.2-1.2); Calc. Creatinine Clearance 0 mL/min (70-130); Calcium 8.2 mg/dL (7.8-10.44); Carbon Dioxide 26 mmol/L (22-29); Chloride 109 mmol/L (98-107); Estimated GFR-MDRD Greater than 90; Globulin 1.9 g/dL (2.4-3.5); Glucose 120 mg/dL (70-105); Protein, Total 5.3 g/dL (6.0-8.3); Sodium 142 mmol/L (136-145)
[2020-02-17 20:55] LABS: #Eosinphils 0.1 thou/uL (0.0-0.7); #Lymphocytes 1.6 thou/uL (1.20-3.40); #Monocytes 0.6 thou/uL (0.11-0.59); #Neutrophils 4.1 thou/uL (1.40-6.50); %Basophils 0.4 % (0.0-1.0); %Lymphocytes 24.7 % (21.0-51.0); %Monocytes 8.9 % (0.0-10.0); Hemoglobin 10.2 g/dL (12.0-16.0); Mean Corpuscular HGB CONC 32.3 g/dL (32.0-36.0); Mean Corpuscular Hemoglobin 28.8 pg (27.0-31.0); Mean Corpuscular Volume 89.1 fL (78.0-98.0); Mean Platelet Volume 8.7 fL (7.4-10.4); Platelet Count 199 thou/uL (130-400); RBC Distribution Width 12.5 % (11.5-14.5); Red Blood Cell (RBC) Count 3.56 mill/uL (4.20-5.40); White Blood Cell (WBC) Count 6.3 thou/uL (4.8-10.8)
--- NOTE | 2020-02-17 21:06 | RAD ---
Portable frontal chest radiograph: 02/17/2020 COMPARISON: 05/29/2019 HISTORY: Abdominal pain, chest pain FINDINGS: No pneumothorax or pleural fluid. No focal consolidation or alveolar edema. Heart and media stinal contours are grossly unremarkable. Free intraperitoneal air is noted beneath the right and left hemidiaphragm. Impression: Free intraperitoneal air. Question history of recent laparoscopic surgery. Bowel perforat ion in the proper clinical setting cannot be excluded. The ordering provider, Greer Perez, was made aware at 9:03 PM 02/17/2020. The patient has reporte dly left AGAINST MEDICAL ADVICE.
== END ==
LOC: ERS 19:59
DX: Z53.21 Procedure and treatment not carried out due to patient leaving prior to being seen by health care provider (principal)
CPT/HCPCS: 36415; 71045; 80053; 84484

== ENCOUNTER 2023-02-22 10:00 | Outpatient (CLI) | payer BC | END 2023-02-22 10:01 | disposition home or self-care (01) | LOC: RAD 10:00 | PROVIDERS: ATTEND Family Medicine | DX: S69.91XA Unspecified injury of right wrist, hand and finger(s), initial encounter (principal) ==